=== PATIENT | female | born 1945 | race Hispanic/Latino ===

== ENCOUNTER 2017-07-17 10:07 | Day surgery (SDC) | payer MEDICARE ==
[~2017-07-17 10:07] MED LIST: LACTATED RINGERS 1,000 ML IV SCH; VERSED IV NR
[2017-07-17] MEDS ORDERED: ANCEF/STERILE WATER 2 GM/20 ML IV NR (10:37)
--- NOTE | 2017-07-17 11:12 | Anesthesia Day of Surgery ---
Anesthesia Day of Surgery - Day of Surgery Patient Examined: Yes Patient H&P Reviewed: Yes Patient is NPO: Yes Beta Blockers: Yes
--- NOTE | 2017-07-17 11:12 | Anesthesia Consultation ---
Anesthesia Consult and Med Hx Date of service: 07/17/17 - Airway Anesthetic Teeth Evaluation: Poor ROM Head & Neck: Adequate Mental/Hyoid Distance: Adequate Mallampati Class: Class II Intubation Access Assessment: Probably Good - Pulmonary Exam CTA: Yes - Cardiac Exam Cardiac Exam: RRR - Pre-Operative Health Status ASA Pre-Surgery Classification: ASA3 Proposed Anesthetic Plan: General - Cardiovascular System Hx Hypertension: Yes - Central Nervous System CVA: Yes (TIA) - Hematic Hx Anemia: Yes - Additional Comments Anesthesia Medical History Comments: OA
[2017-07-17] MEDS ORDERED: LACTATED RINGERS 1,000 ML ONE ×2 (11:55)
[2017-07-17] MEDS ORDERED: ANCEF/STERILE WATER 2 GM/20 ML 2 GM/20 ML SYRINGE IV ONE ×2 (11:56)
[2017-07-17 12:00] LABS: Basophils % (Auto) 0.5 % (0.0-1.8); Eosinophils # (Auto) 0.1 K/mm3 (0.0-0.4); Hematocrit 31.7 % (30.3-42.9); Hemoglobin 10.9 gm/dl (10.1-14.3); Lymphocytes # (Auto) 1.4 K/mm3 (1.2-5.4); Lymphocytes % (Auto) 30.5 % (13.4-35.0); Mean Corpuscular HGB Conc 35 % (30-34); Mean Corpuscular Hemoglobin 28 pg (28-32); Mean Corpuscular Volume 81 fl (79-97); Monocytes # (Auto) 0.3 K/mm3 (0.0-0.8); Monocytes % (Auto) 6.5 % (0.0-7.3); Platelet Count 237 K/mm3 (140-440); Red Blood Count 3.89 M/mm3 (3.65-5.03); Red Cell Distribution Width 18.4 % (13.2-15.2)
[2017-07-17 12:08] LABS: BUN/Creatinine Ratio 23; Blood Urea Nitrogen 9 mg/dL (7-17); Calcium 8.3 mg/dL (8.4-10.2); Hemolysis Index 8
[2017-07-17] MEDS ORDERED: ROBINUL ONE (13:00)
[2017-07-17] MEDS ORDERED: ZOFRAN ONE ×2 (13:52)
[2017-07-17] MEDS ORDERED: SUBLIMAZE ONE ×2 (13:52)
[2017-07-17] MEDS ORDERED: DIPRIVAN 10 MG/ML IV ONE ×2 (13:52)
[2017-07-17] MEDS ORDERED: DECADRON ONE ×2 (14:07)
[2017-07-17] MEDS ORDERED: ePHEDrine SULFATE ONE ×2 (14:07)
[2017-07-17] MEDS ORDERED: XYLOCAINE CARDIAC IV ONE ×2 (14:07)
--- NOTE | 2017-07-17 14:58 | Post Operative Note ---
Date of procedure: 07/17/17 Pre-op diagnosis: r ureteral stone Post-op diagnosis: same Findings: as above Procedure: R eswl Anesthesia: MUNIR Surgeon: CHEYENNE FELIX Estimated blood loss: none Condition: stable Disposition: PACU
--- NOTE | 2017-07-17 14:59 | Discharge Summary ---
Short Stay Discharge Plan Activity: other (no straining ) Weight Bearing Status: Partial Weight Bearing Diet: regular Special Instructions: other (incf luids ) Follow up with: CHEMA NUNEZ MD [Primary Care Provider] - 7 Days CHEYENNE FELIX MD [Staff Physician] - 7 Days
--- NOTE | 2017-07-17 16:31 | Operative Report ---
PREOPERATIVE DIAGNOSIS: Right upper ureteral stone. POSTOPERATIVE DIAGNOSES: Right upper ureteral stone. PROCEDURE: In situ right ESWL. SURGEON: Javy Jackson MD ANESTHESIA: General. FINDINGS: This woman had a 9 mm upper ureteral stone. It is not so dense. It looks like she is a good candidate for in situ treatment. All risks and implications discussed. DESCRIPTION OF PROCEDURE: The patient was brought to lithotripsy and placed on the table. Following the induction of anesthesia, shocks were begun at 1 kV, renal pause was carried out and she began having ectopy, so we started gaiting her . During that procedure, the machine failed, so we had to reboot the machine a couple of times. There was an extra renal pause. At this point, the machine was restarted, we gave a total of 2500 shocks. Excellent fragmentation. Went up to 5 kV. The patient tolerated the procedure well. No significant complications. There was no more ectopy. She was brought to recovery room in stable condition. PLAN: She needs close followup and she may need staged procedures as she knew preoperatively. JOB# [id number] JUANITA/DANNY
[2017-07-17 17:07] VITALS: BP 144/80
[2017-07-17] MEDS ORDERED: PHENERGAN PO PRN (17:17)
[2017-07-17] MEDS ORDERED: PHENERGAN ONE (17:18)
--- NOTE | 2017-07-17 17:18 | Post Anesthesia Evaluation ---
- Post Anesthesia Evaluation Patient Participated: Yes Airway Patent: Yes Stable Respiratory Function: Yes Nausea/Vomiting: No Temp > 96.8F: Yes Pain Manageable: Yes Adequeate Hydration: Yes Anesthesia Complications: No
== END 2017-07-17 10:08 | disposition home or self-care (01) ==
LOC: OR 10:07
PROVIDERS: ATTEND Urology
DX: N20.1 Calculus of ureter (principal); I10 Essential (primary) hypertension; M19.90 Unspecified osteoarthritis, unspecified site; Z86.73 Personal history of transient ischemic attack (TIA), and cerebral infarction without residual deficits
CPT/HCPCS: 36415; 50590; 80048; 85025; J0690; J1100; J2001; J2405; J2704; J3010; J7120; Q0169